=== PATIENT | male | born 1940 | race African-American/Black ===

== ENCOUNTER 2021-11-15 09:34 | Emergency (ER) | payer MEDICARE ==
[2021-11-15 09:38] VITALS: RESP 18
[2021-11-15] MEDS ORDERED: KETOROLAC 15 MG/ML 1 ML VIAL IVP STA (10:26)
[2021-11-15] MEDS ORDERED: SODIUM CHLORIDE 0.9% 500 ML 500 ML IV STA (10:26)
--- NOTE | 2021-11-15 10:30 | ED ---
General Adult HPI - General Chief complaint: ENT Stated complaint: lump on face/neck Time Seen by Provider: 11/15/21 09:47 Source: patient Mode of arrival: ambulatory Limitations: no limitations - History of Present Illness Initial comments: 81-year-old male presents to the emergency room for left-sided face swelling. This started approximately one month ago. Has been worsening. They did see a dentist who did not think it is tooth related but was started on an unknown antibiotic. Patient went to an urgent care yesterday and was started back on c lindamycin. They have an appointment with primary care in 6 days but the family member states the patient was in a lot of pain today and she thought it was more spreading into his neck. Patient has not had fevers. Denies sore throat. Denies ear pain.Patient has no other complaints at this time including shortness of breath, chest pain, abdominal pain, nausea or vomiting, headache, or visual changes. - Related Data Home Medications Medication Instructions Recorded Confirmed amLODIPine [Norvasc] 10 mg PO DAILY 10/06/14 10/11/14 Triamterene-Hctz 37.5-25Mg 1 PO DAILY 10/11/14 10/11/14 [Maxzide 37.5-25] Triamterene-Hctz 37.5-25Mg 1 each PO DAILY 10/11/14 10/11/14 [Maxzide 37.5-25] Previous Rx's Medication Instructions Recorded Aspirin 325 mg PO BID 30 Days tab 10/12/14 HYDROcodone/APAP 7.5-325MG [Natoma 1 - 2 each PO Q6HR PRN #60 tab 10/12/14 7.5-325] Allergies Allergy/AdvReac Type Severity Reaction Status Date / Time No Known Allergies Allergy Verified 11/15/21 09:36 Review of Systems ROS Statement: Those systems with pertinent positive or pertinent negative responses have been documented in the HPI. ROS Other: All systems not noted in ROS Statement are negative. Past Medical History Past Medical History: Hypertension History of Any Multi-Drug Resistant Organisms: None Reported Past Surgical History: Joint Replacement, Orthopedic Surgery Additional Past Surgical History / Comment(s): sandra elbow surgery, sandra knee replacements, SX ON NOSE Past Psychological History: No Psychological Hx Reported Smoking Status: Never smoker Past Alcohol Use History: None Reported Past Drug Use History: None Reported General Exam Limitations: no limitations General appearance: alert, in no apparent distress Head exam: Present: atraumatic Eye exam: Present: normal appearance, PERRL, EOMI. Absent: scleral icterus, conjunctival injection ENT exam: Present: normal exam, normal oropharynx (Oropharynx is patent. No tripoding. No difficulty swallowing saliva. No respiratory distress. No sublingual edema.), mucous membranes moist, normal external ear exam, other (Patient does have erythema with induration noted to the left parotid area and left submandibular area). Absent: TM's normal bilaterally (Cerumen impaction of the left EAC, unable to visualize) Neck exam: Present: normal inspection, full ROM. Absent: tenderness Respiratory exam: Present: normal lung sounds bilaterally. Absent: respiratory distress, wheezes Cardiovascular Exam: Present: regular rate, normal rhythm, normal heart sounds Course Vital Signs 11/15/21 09:36 Temperature 98.5 F Pulse Rate 100 Respiratory 18 Rate Blood Pressure 154/89 O2 Sat by Pulse 96 Oximetry Medical Decision Making - Medical Decision Making CT revealed a large soft tissue mass the. The left carotid bifurcation within the internal jugular chain measuring 6.3 cm x 3.6 cm. May reflect large area of current conglomerate adenopathy however mass of other etiology is not excluded. There is also a solid left sided intraparotid mass with superficial and deep components measuring 3.9 x 2.1 cm. Suspect malignancy. Tissue diagnosis recommended. Case discussed with Dr. Cruz to recommends transfer. I discussed this case with Holger mccallum, who spoke with ENT team, accepts transfer. PAtient and family agreeable to holger keyes transfer - Lab Data Result diagrams: 11/15/21 10:30 11/15/21 10:30 Lab Results 11/15/21 11/15/21 11/15/21 Range/Units 10:30 10:30 10:30 WBC 6.2 (3.8-10.6) k/uL RBC 5.05 (4.30-5.90) m/uL Hgb 15.1 (13.0-17.5) gm/dL Hct 45.4 (39.0-53.0) % MCV 89.8 (80.0-100.0) fL MCH 29.8 (25.0-35.0) pg MCHC 33.2 (31.0-37.0) g/dL RDW 12.9 (11.5-15.5) % Plt Count 197 (150-450) k/uL MPV 7.9 Neutrophils % 67 % Lymphocytes % 18 % Monocytes % 8 % Eosinophils % 4 % Basophils % 1 % Neutrophils # 4.2 (1.3-7.7) k/uL Lymphocytes # 1.1 (1.0-4.8) k/uL Monocytes # 0.5 (0-1.0) k/uL Eosinophils # 0.3 (0-0.7) k/uL Basophils # 0.1 (0-0.2) k/uL Sodium 138 (137-145) mmol/L Potassium 4.0 (3.5-5.1) mmol/L Chloride 103 (98-107) mmol/L Carbon Dioxide 26 (22-30) mmol/L Anion Gap 9 mmol/L BUN 16 (9-20) mg/dL Creatinine 1.21 (0.66-1.25) mg/dL Est GFR (CKD-EPI)AfAm 64 (>60 ml/min/1.73 sqM) Est GFR (CKD-EPI)NonAf 55 (>60 ml/min/1.73 sqM) Glucose 101 H (74-99) mg/dL Plasma Lactic Acid Cipriano 1.1 (0.7-2.0) mmol/L Calcium 9.0 (8.4-10.2) mg/dL Total Bilirubin 1.1 (0.2-1.3) mg/dL AST 23 (17-59) U/L ALT 16 (4-49) U/L Alkaline Phosphatase 57 (38-126) U/L Total Protein 7.5 (6.3-8.2) g/dL Albumin 3.8 (3.5-5.0) g/dL Disposition Clinical Impression: Neck mass, Parotid mass Disposition: OTHER INSTITUTION NOT DEFINED Is patient prescribed a controlled substance at d/c from ED?: No Referrals: Yazmin Veliz MD [Primary Care Provider] - 1-2 days Time of Disposition: 13:47 - Out of Hospital Transfer - Req. Specs Out of Hospital Transfer - Requested Specifics: Other Emergency Center ([facility]
[2021-11-15 10:59] LABS: Basophils # (A) 0.1 k/uL (0-0.2); Basophils % (A) 1 %; Eosinophils # (A) 0.3 k/uL (0-0.7); Eosinophils % (A) 4 %; HCT 45.4 % (39.0-53.0); HGB 15.1 gm/dL (13.0-17.5); Lymphocytes # (A) 1.1 k/uL (1.0-4.8); Lymphocytes % (A) 18 %; MCH 29.8 pg (25.0-35.0); MCHC 33.2 g/dL (31.0-37.0); MCV 89.8 fL (80.0-100.0); Mean Platelet Volume 7.9; Monocytes # (A) 0.5 k/uL (0-1.0); Monocytes % (A) 8 %; Neutrophils # (A) 4.2 k/uL (1.3-7.7); Neutrophils % (A) 67 %; Platelet Count 197 k/uL (150-450); RBC 5.05 m/uL (4.30-5.90); RDW 12.9 % (11.5-15.5); WBC 6.2 k/uL (3.8-10.6)
[2021-11-15 11:20] LABS: Albumin 3.8 g/dL (3.5-5.0); Total Bilirubin 1.1 mg/dL (0.2-1.3); Total Protein 7.5 g/dL (6.3-8.2)
--- NOTE | 2021-11-15 12:16 | CT ---
EXAMINATION TYPE: CT soft tissue neck w con DATE OF EXAM: 11/15/2021 COMPARISON: None HISTORY: Pain And swelling CONTRAST: CT scan of the neck is performed with IV Contrast, patient injected with 100 mL of Isovue 300. Contrast enhanced CT of the neck was performed from the skull base through the lung apices. AIRWAY: The supraglottic, glottic, and subglottic portions of the airway appear patent and free of mass. SALIVARY GLANDS: There is a solid left-sided intraparotid mass within the superficial and deep compo nents measuring 3.9 x 2.1 cm. Right parotid gland is unremarkable. The submandibular are free of mas s or inflammatory process. THYROID GLAND: No nodules or masses seen. LYMPH NODES: There is a large soft tissue mass superior to the left carotid bifurcation within the in ternal jugular chain measuring 6.3 cm craniocaudal dimension by 3.6 cm. This may reflect a large area of conglomerate adenopathy. Mass of other etiology is not excluded. LUNG APICES: No nodule or mass is seen. OTHER: Vascular structures are patent. No significant degenerative change of the cervical spine. N o abscess seen. IMPRESSION: 1. There is a large soft tissue mass superior to the left carotid bifurcation within the internal jug ular chain measuring 6.3 cm craniocaudal dimension by 3.6 cm. This may reflect a large area of conglo merate adenopathy. Mass of other etiology is not excluded. 2.There is a solid left-sided intraparotid mass within the superficial and deep components measuring 3.9 x 2.1 cm. Suspect malignancy. Tissue diagnosis recommended.
[2021-11-15 14:03] VITALS: TEMP 98
[2021-11-15 14:39] VITALS: BP 158/87; PULSE 78
== END 2021-11-15 15:32 | disposition other institution (70) ==
LOC: EC 09:34
DX: R22.1 Localized swelling, mass and lump, neck (principal); K11.8 Other diseases of salivary glands; I10 Essential (primary) hypertension; Z79.82 Long term (current) use of aspirin; Z96.653 Presence of artificial knee joint, bilateral
CPT/HCPCS: 99284; 96374; 96361 ×3; 36415; 80053; 83605; 85025; 70491; J1885; Q9967

== ENCOUNTER → 2021-12-09 | Outpatient (CLI) | payer MEDICARE ==
--- NOTE | 2021-12-09 23:11 | CT ---
EXAMINATION TYPE: CT abdomen w con DATE OF EXAM: 12/09/2021 COMPARISON: None available HISTORY: RENAL MASS CT DLP: 784.6 mGycm Automated exposure control for dose reduction was used. TECHNIQUE: Helical acquisition of images was performed from the lung bases through the top of iliac crest to include entire abdomen. CONTRAST: Performed with Oral Contrast and with IV Contrast, patient injected with 100ML mL of Isovue 300. FINDINGS: LUNG BASES: Bilateral basal pulmonary dependent densities and minimal pleural fluid. Mild cardiomegal y. LIVER/GB: Left hepatic lobe bilobed cyst measuring 3.8 cm. No other definite hepatic focal lesion justin ntified. The gallbladder is not distended. PANCREAS: Fatty infiltration of the pancreatic head. No definite pancreatic lesion. SPLEEN: No significant abnormality is seen. ADRENALS: No significant abnormality is seen. KIDNEYS: Hyperdense/hypervascular lesion seen at the central portion of the midpole of right kidney m easuring 18 x 19 x 23 mm without definite cystic areas of calcification within, suspicious for hyperv ascular renal neoplasm. No obvious communication with the renal collecting system. The mid pole renal calyces are splayed over the lesion. Large cyst with tiny marginal calcification is seen at the uppe r pole of the right kidney measuring up to 7.4 cm. Suspected small mural nodule is seen at the inferi or aspect of the cyst measuring 15 mm. Other scattered bilateral renal cysts without gross suspicious features. No hydronephrosis bilaterally. Patent renal vessels. BOWEL: Unremarkable stomach and duodenum. Previous small bowel anastomosis, unremarkable. No evidenc e of bowel obstruction. The proximal jejunal loops are seen in the right side of the abdomen. Colonic diverticulosis without evidence of acute diverticulitis. Fecal loading of the colon. Normal appendix . LYMPH NODES: Subcentimeter gastrohepatic lymph nodes, nonspecific. No pathologically enlarged abdomi nal lymph nodes. OSSEOUS STRUCTURES: Degenerative changes of the lumbar spine. No aggressive bone lesion. FREE AIR: No free air is visualized. OTHER: Scattered arterial atherosclerotic calcifications. Fat-containing umbilical hernia. No sizable abdominal ascites. 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 Other findings as described above.
== END | disposition home or self-care (01) ==
LOC: RADCTMAIN 17:41
PROVIDERS: ATTEND Otolaryngology
DX: N28.1 Cyst of kidney, acquired (principal)
CPT/HCPCS: 82565; 84520; 74160; 36415; Q9967

== ENCOUNTER → 2022-01-08 | Outpatient (CLI) | payer MEDICARE ==
--- NOTE | 2022-01-08 12:40 | MR ---
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 FINDINGS: Diffusion weighted images demonstrate no evidence of a recent infarct or other diffusion ab normality. The ventricular system and cisternal spaces are normal in size and appearance. The brain volume is age appropriate. Septum pellucidum vergae is present. Some scattered foci of T2 hyperintens ity are seen throughout the white matter bilaterally becoming slightly more confluent in appearance a t the periventricular level. Midline structures demonstrate normal morphology. The craniocervical junction appears within normal limits. Post contrast images demonstrate no abnormal enhancement. The dural venous sinuses appear pa tent. Mild to moderate mucosal thickening involving the ethmoid sinuses bilaterally. The globes are i ntact bilaterally. There is heterogeneous enhancing left parotid mass or neoplasm partially imaged on this study which correlates with most recent CT neck exam. IMPRESSION: No suspicious enhancing masses to suggest metastatic disease to the brain. Mild to modera te chronic small vessel ischemic changes are appreciated.
== END | disposition home or self-care (01) ==
LOC: RADMRIMAIN 11:16
PROVIDERS: ATTEND Internal Medicine Hematology & Oncology
DX: C4A.4 Merkel cell carcinoma of scalp and neck (principal)
CPT/HCPCS: 70553; A9585

== ENCOUNTER → 2022-01-10 | Outpatient (CLI) | payer MEDICARE ==
--- NOTE | 2022-01-13 06:31 | PE ---
EXAMINATION TYPE: PET CT fusion skull to thigh DATE OF EXAM: 01/10/2022 COMPARISON: CT neck November 15, 2021. 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 TECHNIQUE: Following the intravenous administration of 11.67 mCi of F-18 FDG, whole body images are performed from the skull base to the midthigh. Images are reviewed on the computer in the coronal, a xial, and sagittal planes. Reconstructed rotating images are created on independent workstation and reviewed on the computer. A localization and attenuation correction CT is performed in conjunction with the PET scan. Blood glucose level equals 87. SCAN: Initial Scan FINDINGS: SKULL BASE AND NECK: Large lobulated mass deep to the inferior left parotid gland posterior to the m andibular angle measuring approximately 5.5 x 2.5 cm axial image 35 has abnormal hypermetabolic uptak e, max SUV is 18.19 on axial image 38. Just superior and lateral to this there is a lobulated hyperdense 3.4 x 2.2 cm hypermetabolic mass in the inferior deep left parotid gland with abnormal hypermetabolic uptake, max SUV is 14.42 on axial image 25. Loss of normal left-sided parapharyngeal fat space is noted due to local mass effect. No definitive additional areas of abnormal hypermetabolic uptake. No definitive right-sided hypermeta bolic masses. CHEST, MEDIASTINUM, AND HILAR REGION: No definitive abnormal hypermetabolic lesions. ABDOMEN AND PELVIS: Normal excretion is seen. Mild nonspecific bowel uptake. Focus of increased uptak e in the sigmoid colon right pelvis axial image 203 is nonspecific, max SUV is 8.73. OSSEOUS STRUCTURES: No abnormal hypermetabolic lesions. OTHER CT: Low lung volumes. Coronary artery calcification is present. There is simple appearing 3.2 cm thin-walled cyst in the left hepatic lobe axial image 115. Large exo phytic thin-walled cyst from the upper pole of the right kidney are redemonstrated. Prominent colonic diverticula greatest in the sigmoid colon. There are bilateral inguinal hernias that are slightly la rger on the right and containing portion of nondilated bowel. IMPRESSION: 1. Large lobulated left neck neoplasm or adenopathy identified with second lesion centered deep aspec t of left parotid gland more superior and peripheral in location. No distal metastatic disease. 2. Area of hypermetabolic concern sigmoid colon, second primary colonic neoplasm cannot be excluded. Advise direct visualization with colonoscopy if it has not been performed in last 3 years.
== END | disposition home or self-care (01) ==
LOC: RADPETMAIN 11:37
PROVIDERS: ATTEND Internal Medicine Hematology & Oncology
DX: C4A.4 Merkel cell carcinoma of scalp and neck (principal)
CPT/HCPCS: 78815; A9552

== ENCOUNTER → 2022-05-15 | Outpatient (CLI) | payer MEDICARE ==
--- NOTE | 2022-05-17 15:08 | PE ---
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 Images are reviewed on the computer in the coronal, a xial, and sagittal planes. Reconstructed rotating images are created on independent workstation and reviewed on the computer. A non-contrast CT is performed in conjunction with the PET scan. Glucose level 103 mg/dL COMPARISON: CT 12/09/2021, 11/15/2021, PET/CT 01/10/2022, FINDINGS: Mediastinal SUV mean is 1.9. Hepatic parenchyma SUV mean is 2.3. SKULL BASE AND NECK: There has been a positive response to therapy with interval decrease in size of left neck lymph nodes as well as resolution of prior elevated FDG activity. Example includes left pa rotid gland region previously 3.4 x 2.2 cm now measures 1.1 x 0.8 cm with Max SUV 4.8 in the area of previous mass, previously max SUV 14.4. No focal radiotracer uptake within the suspected remnant soft tissue within the left parotid gland. Evaluation of other conglomerate lymph nodes within the neck s een on prior is slightly limited given lack of IV contrast and no focal increased metabolic activity. CHEST, MEDIASTINUM, AND HILAR REGION: No suspicious FDG activity. ABDOMEN AND PELVIS: * Radiotracer uptake within the right inguinal hernia containing omental fat with Max SUV 3.5. * Scattered physiologic uptake within the bowel. * More focal uptake within the sigmoid colon of max SUV 2.8 in the mid abdomen previously 2.3. OSSEOUS STRUCTURES: No suspicious FDG activity. OTHER CT: Atherosclerosis at the carotid bifurcation on the left. Atherosclerosis of the arterial vas culature including the coronary arteries which is moderate to severe in severity. Hepatic cyst is pre sent. Renal cysts are present. Fat-containing umbilical hernia. Colonic diverticulosis. IMPRESSION: 1. Positive response to therapy with resolution of prior elevated FDG activity within the left neck conglomerate lymphadenopathy and near resolution of lymphadenopathy. Evaluation slightly limited give n lack of FDG activity at the neck and lack of contrast. No new suspicious lymphadenopathy within the chest abdomen or pelvis. 2. Focal radiotracer uptake within the sigmoid colon which has increased from prior, correlate with colonoscopy if not recently performed. 3. Right fat (omental fat) containing inguinal hernia with some mild FDG activity suspicious for loc al inflammation.
== END | disposition home or self-care (01) ==
LOC: RADPETMAIN 16:05
PROVIDERS: ATTEND Internal Medicine Hematology & Oncology
DX: C4A.4 Merkel cell carcinoma of scalp and neck (principal); K40.90 Unilateral inguinal hernia, without obstruction or gangrene, not specified as recurrent
CPT/HCPCS: 78815; A9552

== ENCOUNTER → 2023-01-08 | Outpatient (CLI) | payer MEDICARE ==
--- NOTE | 2023-01-08 13:59 | PE ---
EXAMINATION TYPE: PET CT fusion skull to thigh DATE OF EXAM: 01/08/2023 COMPARISON: Prior PET/CT May 15, 2022 and older studies. 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 Images are reviewed on the computer in the coronal, ax ial, and sagittal planes. Reconstructed rotating images are created on independent workstation and r eviewed on the computer. A localization and attenuation correction CT is performed in conjunction w ith the PET scan. Dedicated PET/CT imaging of the head and neck is performed. Blood glucose level equ als 90 SCAN: Subsequent Scan FINDINGS: HEAD AND NECK: No recurrent abnormal hypermetabolic uptake in the left neck. No new areas of abnorma l hypermetabolic uptake. CHEST, MEDIASTINUM, AND HILAR REGION: No new Areas of abnormal hypermetabolic lesions. ABDOMEN AND PELVIS: Normal excretion is redemonstrated. No new areas of abnormal hypermetabolic uptak e. OSSEOUS STRUCTURES: No new areas of abnormal hypermetabolic lesions. OTHER CT: Low lung volumes redemonstrated. Coronary artery calcification is redemonstrated. There is simple appearing 3.2 cm thin-walled cyst in the left hepatic lobe axial image 115 redemonstr ated. Large exophytic thin-walled cyst from the upper pole of the right kidney is redemonstrated. Pro minent colonic diverticula greatest in the sigmoid colon are again seen. Surgical sutures in the ante rior upper to mid bowel loop near axial image 147 are redemonstrated. There are bilateral inguinal he rnias that are slightly larger on the right and containing portion of nondilated bowel redemonstrated . Spine is straightened on sagittal images. IMPRESSION: Continued complete positive treatment response. No new abnormal metabolic uptake to sugge st active local or new metastatic neoplastic recurrence.
== END | disposition home or self-care (01) ==
LOC: RADPETMAIN 11:01
PROVIDERS: ATTEND Internal Medicine Hematology & Oncology
DX: C4A.9 Merkel cell carcinoma, unspecified (principal)
CPT/HCPCS: 78815; A9552

== ENCOUNTER → 2023-09-16 | Outpatient (CLI) | payer MEDICARE ==
--- NOTE | 2023-09-19 21:25 | PE ---
EXAMINATION TYPE: PET CT fusion skull to thigh DATE OF EXAM: 09/16/2023 CLINICAL INDICATION:Male, 83 years old with history of C4A4 EDMUND CELL; TECHNIQUE: Following the intravenous administration of 9.75 mCi of F-18 FDG, whole body images are performed from the skull base to the midthigh. Images are reviewed on the computer in the coronal, a xial, and sagittal planes. Reconstructed rotating images are created on independent workstation and reviewed on the computer. A non-contrast CT is performed in conjunction with the PET scan. Glucose level 88 mg/dL CT DLP: 615 mGycm, Automated exposure control for dose reduction was used. COMPARISON: CT None, PET/CT 12/31/2022, 05/15/2022, 01/10/2022 FINDINGS: Mediastinal SUV mean is 2.5. Hepatic parenchyma SUV mean is 3.3. SKULL BASE AND NECK: * Focal uptake in the left parotid gland max SUV 7.1 previously not as well visualized within the le rich measuring 11 mm in short axis previously 8-9 mm in short axis on 12/31/2022. This is 7 mm in shor t axis and 05/15/2022 and was a heterogenous enlarged mass on 01/10/2022. CHEST, MEDIASTINUM, AND HILAR REGION: No suspicious radiotracer activity. ABDOMEN AND PELVIS: No suspicious radiotracer activity. MUSCULOSKELETAL STRUCTURES: No suspicious radiotracer activity. OTHER CT: Atherosclerosis of the arterial vasculature coronary arteries. Mild gynecomastia changes bi laterally. Heart is mildly enlarged. Aortic valve leaflet calcifications. Left hepatic lobe cyst. Mul tiple right renal cysts with thin septations and some of the edges. Small hiatal hernia. Appendix is normal. Fat-containing umbilical hernia. Colonic diverticulosis. Left fat-containing inguinal hernia. Right inguinal hernia containing loops of small bowel. Prostatomegaly with coarse calcifications. IMPRESSION: Slowly increasing size of left parotid gland lesion which now has increased metabolic activity is com patible with recurrence. No additional abnormal FDG activity visualized.
== END | disposition home or self-care (01) ==
LOC: RADPETMAIN 10:34
PROVIDERS: ATTEND Internal Medicine Hematology & Oncology
DX: C4A.4 Merkel cell carcinoma of scalp and neck (principal); K11.8 Other diseases of salivary glands
CPT/HCPCS: 78815; A9552